=== PATIENT | male | born 1975 | race Caucasian/White ===

== ENCOUNTER 2019-10-24 17:04 | Emergency (ER) | payer OTHER ==
[~2019-10-24] VITALS: Ht 170.2 cm; Wt 83.9 kg
[2019-10-24 17:51] VITALS: Ht 170.2 cm; Wt 83.9 kg
[2019-10-24 20:10] VITALS: BP 152/74
== END 2019-10-24 20:10 | disposition home or self-care (01) ==
LOC: ED 17:04
DX: J03.90 Acute tonsillitis, unspecified (principal)
CPT/HCPCS: J2920